=== PATIENT | female | born 1940 | race Two or more races ===

== ENCOUNTER 2020-06-24 21:13 | Emergency (ER) | payer MEDICARE ==
[~2020-06-24] VITALS: Ht 149.9 cm; Wt 70.0 kg
--- NOTE | 2020-06-24 21:24 | NUR ---
PT BIB [facility] AFTER AN ANXIETY ATTACK AT HOME, GIVNE 3 MG IM VERSED ENROUTE PER PT AND SON (POSSIBLE MEDICAL PROVIDER) REQUEST. PT ARRIVED TO ED RESPONSIVE, ANOx4, GROSS NEURO INTACT, REPORTS SHE WAS EXTREMELY ANXIOUS AT HOME AND HAD A SLIGHT CARMEN. PT NAD AT THIS TIME. RESTING COMFORTABLY, DNEIES ADDITIONAL NEEDS AT THIS TIME, PROVIDED CALL LIGHT. SON ISIDRO [phone], OKAY TO RELEASE MEDICAL INFORMATION PER PT REQUEST. HILLARY WEAVER AT FOR EVAL AND POC
--- NOTE | 2020-06-24 22:09 | NUR ---
PT RESTING ON GURCECILIA, NAD, DENIES ADDITIONAL NEEDS, STATES "I AM COMFORTABLE" LIGHTS DIMMED SO PT CAN REST. WCTM. WAITING FOR ADDITIONAL TEST RESULTS.
[2020-06-24 22:14] LABS: BASOPHILS % (AUTO) 1 % (0-1); EOSINOPHILS % (AUTO) 3 % (1-7); LYMPHOCYTES % (AUTO) 12 % (22-44); MEAN CORPUSCULAR HEMOGLOBIN 28.7 pg (27.0-34.8); MEAN PLATELET VOLUME 7.3 fL (7.4-10.4); MONOCYTES % (AUTO) 6 % (2-9); NEUTROPHILS % (AUTO) 78 % (42-75); PLATELET COUNT 346 x10^3/uL (130-400); RED BLOOD COUNT 4.73 x10^6/uL (3.82-5.3); RED CELL DISTRIBUTION WIDTH 13.5 % (9.6-15.2)
[2020-06-24 22:17] LABS: MD NO
[2020-06-24 22:21] LABS: ALBUMIN 4.1 g/dL (3.4-5.0); ANION GAP 5 mmol/L (5-15); CALCIUM 9.3 mg/dL (8.5-10.1); CHLORIDE 100 mmol/L (98-107); CREATININE 0.95 mg/dL (0.55-1.02)
[2020-06-24 22:25] LABS: TROPONIN I < 0.015 ng/mL (0.000-0.045)
--- NOTE | 2020-06-24 23:38 | NUR ---
HILLARY WEAVER AT BS. PT NAD, RESTING ON MARJORIE PT LIKELY TO BE DC'D AT THIS TIME. WCTM. WAITING FOR DC PAPERS.
[2020-06-25 00:05] VITALS: BP 138/66
--- NOTE | 2020-06-25 00:27 | NUR ---
Patient given discharge instructions and they have confirmed that they understand the instructions. Patient ambulatory with steady gait. NAD, DENIES ADDITIONAL QUESTIONS, REPEATEDLY STATING "BUT I NEED SOMETHING FOR MY ANXIETY, WHAT IF THIS HAPPENS AGAIN?" RN AND MD EXPLAINED THAT SHE NEEDS TO GET ESTABLISHED WITH A PCP FOR HELP WITH ANXIETY OR POSSIBLE ANXIETY MEDS. PT PROVIDED TAXI VOUCHER. PT APPEARS RELUCTANT TO LEAVE ER
== END 2020-06-25 00:40 | disposition home or self-care (01) ==
LOC: ED 21:43
DX: F41.1 Generalized anxiety disorder (principal); R51.9 Headache, unspecified; R00.9 Unspecified abnormalities of heart beat; R94.31 Abnormal electrocardiogram [ECG] [EKG]
CPT/HCPCS: 36415; 70450; 71045; 80048; 82040; 84484; 85025; 93005; 99285

== ENCOUNTER 2020-06-25 12:01 | Emergency (ER) | payer MEDICARE, OTHER ==
[~2020-06-25] VITALS: Ht 149.9 cm; Wt 70.0 kg
--- NOTE | 2020-06-25 12:17 | NUR ---
SEE TRIAGE. WARM BLANKET PROVIDED, CALL LIGHT WITHIN REACH. BP CUFF AND PULSE OX IN PLACE.
[2020-06-25] MEDS ORDERED: LORazepam 1MG TABLET PO ONE (13:00)
[2020-06-25] MEDS ORDERED: LORazepam 1MG TABLET ONE (13:04)
--- NOTE | 2020-06-25 13:09 | NUR ---
PT MEDICATED PER ERP ORDER FOR ANXIETY. AWAITING LAB RESULTS. CALL LIGHT WITHIN REACH. WARM BLANKETS PROVIDED.
[2020-06-25 13:17] LABS: BASOPHILS % (AUTO) 1 % (0-1); EOSINOPHILS % (AUTO) 1 % (1-7); LYMPHOCYTES % (AUTO) 11 % (22-44); MEAN CORPUSCULAR HEMOGLOBIN 28.5 pg (27.0-34.8); MEAN CORPUSCULAR HGB CONC 33.2 g/dL (32.4-35.8); MEAN PLATELET VOLUME 7.5 fL (7.4-10.4); MONOCYTES % (AUTO) 5 % (2-9); NEUTROPHILS % (AUTO) 82 % (42-75); PLATELET COUNT 335 x10^3/uL (130-400); RED BLOOD COUNT 4.94 x10^6/uL (3.82-5.3); RED CELL DISTRIBUTION WIDTH 13.6 % (9.6-15.2)
[2020-06-25 13:26] LABS: ALBUMIN 4.1 g/dL (3.4-5.0); ANION GAP 7 mmol/L (5-15); CALCIUM 9.6 mg/dL (8.5-10.1); CHLORIDE 103 mmol/L (98-107); CREATININE 0.96 mg/dL (0.55-1.02)
[2020-06-25 13:47] LABS: MD NO
--- NOTE | 2020-06-25 14:48 | NUR ---
TAXI VOUCHER PROVIDED FOR SAFE RIDE HOME.
[2020-06-25 14:49] VITALS: BP 112/64
== END 2020-06-25 14:51 | disposition home or self-care (01) ==
LOC: ED 12:20
DX: F41.1 Generalized anxiety disorder (principal); R94.31 Abnormal electrocardiogram [ECG] [EKG]; I10 Essential (primary) hypertension
CPT/HCPCS: 36415; 80048; 82040; 85025; 93005; 99284

== ENCOUNTER 2020-07-12 09:58 | Emergency (ER) | payer MEDICARE ==
[~2020-07-12] VITALS: Ht 162.6 cm; Wt 70.5 kg
[2020-07-12] MEDS ORDERED: LORazepam 1MG TABLET ONE (10:17)
[2020-07-12] MEDS ORDERED: LORazepam 1MG TABLET PO ONE (10:30)
[2020-07-12] MEDS ORDERED: PLEASE ENTER HEIGHT AND WEIGHT MC SCH (10:30)
[2020-07-12] MEDS ORDERED: LORA-446 PO (10:33)
[2020-07-12] MEDS ORDERED: TRAM50TA2 PO (10:33)
[2020-07-12] MEDS ORDERED: LORA-445 PO (10:33)
[2020-07-12] MEDS ORDERED: ALBU8.5H8 INH (10:35)
[2020-07-12 11:19] VITALS: BP 136/60
--- NOTE | 2020-07-12 12:01 | NUR ---
SPOKE WITH PT EXTENSIVELY ABOUT DC PLANNING. RESOURCE'S GIVEN TO PT FOR FOLLOW-UP. I DID SPEAK WITH [facility] AND THEIR OUTPATIENT PROGRAM IS CLOSED AT THIS TIME. PT DOESN'T QUALIFY FOR INPATIENT SERVICES. PT HAS AN APPT WITH [facility] (DR. LEE) IN 6 DAYS. PT VERBALIZES UNDERSTANDING.
== END 2020-07-12 12:05 | disposition home or self-care (01) ==
LOC: ED 11:55
DX: F41.1 Generalized anxiety disorder (principal); R06.02 Shortness of breath; F15.10 Other stimulant abuse, uncomplicated; I10 Essential (primary) hypertension
CPT/HCPCS: 99283

== ENCOUNTER 2020-08-18 09:50 | Emergency (ER) | payer MEDICARE ==
[~2020-08-18] VITALS: Ht 149.9 cm; Wt 60.0 kg
[~2020-08-18 09:50] MED LIST: ALBU8.5H8 INH; LORA-445 PO; LORA-446 PO; TRAM50TA2 PO
--- NOTE | 2020-08-18 10:13 | NUR ---
PT CAME IN CO OF CARMEN, NAUSEA, BODY ACHES AND DIFFUSE ABD PAIN. PT SAW HER PRIMARY AND WAS GIVEN A REFERAL TO [facility] BUT COULDNT GET IN UNTIL A COUPLE WEEKS OUT. SHE THEN CALLED 911 BECAUSE OF THIS ABD PAIN. PT PROVIDED UA. RESTING IN [facility]. PA IS BEDSIDE. WARM BLANKET PROVIDED
[2020-08-18] MEDS ORDERED: ONDANSETRON 2MG/ML, 2ML ONE (10:26)
[2020-08-18] MEDS ORDERED: ONDANSETRON 2MG/ML, 2ML IVPush ONE (10:30)
[2020-08-18 11:08] LABS: BASOPHILS % (AUTO) 1 % (0-1); EOSINOPHILS % (AUTO) 2 % (1-7); LYMPHOCYTES % (AUTO) 9 % (22-44); MEAN CORPUSCULAR HEMOGLOBIN 29.5 pg (27.0-34.8); MEAN CORPUSCULAR HGB CONC 34.3 g/dL (32.4-35.8); MEAN PLATELET VOLUME 7.3 fL (7.4-10.4); MONOCYTES % (AUTO) 7 % (2-9); NEUTROPHILS % (AUTO) 82 % (42-75); PLATELET COUNT 367 x10^3/uL (130-400); RED BLOOD COUNT 4.84 x10^6/uL (3.82-5.3); RED CELL DISTRIBUTION WIDTH 14.1 % (9.6-15.2)
[2020-08-18 11:09] LABS: MD NO
[2020-08-18 11:15] LABS: ANION GAP 6 mmol/L (5-15); CALCIUM 9.2 mg/dL (8.5-10.1); CHLORIDE 103 mmol/L (98-107)
[2020-08-18 11:16] LABS: ALANINE AMINOTRANSFERASE 28 U/L (12-78); ALBUMIN 3.9 g/dL (3.4-5.0)
[2020-08-18 11:20] LABS: ALKALINE PHOSPHATASE 90 U/L (45-117); BILIRUBIN,TOTAL 0.4 mg/dL (0.2-1.0); TOTAL PROTEIN 7.6 g/dL (6.4-8.2); TROPONIN I < 0.015 ng/mL (0.000-0.045)
[2020-08-18 11:20] LABS: MICROSCOPIC INDICATED
[2020-08-18 11:33] VITALS: BP 140/58
--- NOTE | 2020-08-18 11:34 | NUR ---
PT REPOSITIONED FOR COMFORT.
[2020-08-18] MEDS ORDERED: OMNIPAQUE 350 MG/ML, 100ML BOTTLE ONE (11:49)
== END 2020-08-18 13:28 | disposition home or self-care (01) ==
LOC: ED 11:06
DX: N64.4 Mastodynia (principal); R10.13 Epigastric pain; M79.10 Myalgia, unspecified site; R07.89 Other chest pain; R10.84 Generalized abdominal pain; R51.9 Headache, unspecified; R11.0 Nausea; I10 Essential (primary) hypertension
CPT/HCPCS: 36415; 71045; 74177; 80053; 81001; 83690; 84443; 84484; 85025; 93005; 99285; Q9967